=== PATIENT | male | born 1985 | race Caucasian/White ===

== ENCOUNTER 2018-09-12 15:40 | Emergency (ER) | payer OTHER ==
[2018-09-12] MEDS: ONDANSETRON 4 MG INJ IV (16:15)
[2018-09-12] MEDS: DIPHTH/TET/ACEL PERTUSS (ADULT) 0.5 ML VIAL IM* (16:16)
[2018-09-12] MEDS: SOD CHLORIDE 0.9% 1,000 ML IV (16:16)
[2018-09-12] MEDS: morphine 4 MG/ML VIAL IV (16:16)
[2018-09-12 16:17] LABS: ADD MAN DIFF? NO
[2018-09-12 16:21] LABS: WHITE BLOOD COUNT 13.5 10^3/ul (4.8-10.8)
[2018-09-12 16:21] LABS: BASOPHIL # 0.2 10^3/ul (0.0-0.1); BASOPHILS % 1.2 % (0.0-2.0); EOSINOPHILS # 0.9 10^3/ul (0.0-0.5); EOSINOPHILS % 6.5 % (0.0-7.0); HEMATOCRIT 41.5 % (42.0-52.0); HEMOGLOBIN 14.5 g/dl (14.0-18.0); LYMPHOCYTES # 4.1 10^3/ul (0.8-2.9); LYMPHOCYTES % 30.2 % (15.0-51.0); MEAN CORPUSCULAR HEMOGLOBIN 30.7 pg (29.0-33.0); MEAN CORPUSCULAR HGB CONC 34.9 g/dl (32.0-37.0); MEAN CORPUSCULAR VOLUME 87.7 fl (82.0-101.0); MEAN PLATELET VOLUME 10.9 fl (7.4-10.4); MONOCYTE # 0.7 10^3/ul (0.3-0.9); MONOCYTES % 4.9 % (0.0-11.0); NEUTROPHIL # 7.6 10^3/ul (1.6-7.5); NEUTROPHILS % 56.3 % (39.0-77.0); PLATELET COUNT 249 10^3/UL (140-415); RED BLOOD COUNT 4.73 10^6/ul (4.70-6.10); RED CELL DISTRIBUTION WIDTH 12.7 % (11.5-14.5)
[2018-09-12 16:40] LABS: ANION GAP 13 (5-13); BLOOD UREA NITROGEN 15 mg/dl (7-20); CARBON DIOXIDE 18 mmol/L (21-31); CHLORIDE 110 mmol/L (97-110); CREATININE 1.03 mg/dl (0.61-1.24); Estimated GFR > 60 mL/min (>60); GLUCOSE 178 mg/dl (70-220); INR 0.88; PARTIAL THROMBOPLASTIN TIME 20.8 Sec (23.0-35.0); POTASSIUM 4.3 mmol/L (3.5-5.1); PT RATIO 0.9; SODIUM 141 mmol/L (135-144)
[2018-09-12 16:51] LABS: TROPONIN-I < 0.012 ng/ml (0.000-0.120)
== END 2018-09-12 17:59 | disposition short-term general hospital (02) ==
LOC: E/R 15:40
DX: S41.111A Laceration without foreign body of right upper arm, initial encounter (principal); R58 Hemorrhage, not elsewhere classified; S44.21XA Injury of radial nerve at upper arm level, right arm, initial encounter; F17.210 Nicotine dependence, cigarettes, uncomplicated; W25.XXXA Contact with sharp glass, initial encounter; Y92.9 Unspecified place or not applicable; Z23 Encounter for immunization
CPT/HCPCS: 36415; 80048; 84484; 85025; 85610; 85730; 86850; 86900; 86901; 90471; 90715; 93005; 96374; 96375; 99285-25